=== PATIENT | female | born 1935 | race Caucasian/White ===

== ENCOUNTER 2024-07-25 11:30 | Emergency (ER) | payer MEDICARE, SELFPAY ==
[2024-07-25 11:38] VITALS: BP 144/74
--- NOTE | 2024-07-25 12:43 | ED.GENMED ---
History of Present Illness
<Edmund Fishman MD - Last Filed: 07/25/24 12:45>
General
Chief Complaint: Foreign Body Removal
Time Seen by Provider: 07/25/24 12:13
<DASIY Cano - Last Filed: 07/25/24 13:06>
General
Source: patient
Exam Limitations: none
Nursing documentation reviewed up to this point in time: agreed with
History of Present Illness
History of Present Illness:
Patient is an 89-year-old female here to have her pessary removed. She reports several days ago she could feel that it was more comfortable except out of position. She has been trying to remove it herself and unable to do so. She was not able to
get an appointment with gynecology.
Past History
<Edmund Fishman MD - Last Filed: 07/25/24 12:45>
Past History
ED Past Medical History: HTN; Negative Asthma, Hypercholesterolemia or NIDDM
ED Past Surgical History: Orthopedic (Grant knee replacements)
Social History
Tobacco: Non-smoker
Alcohol: Occasional
Personal:
Living: with family
Review of Systems
<DAISY Cano - Last Filed: 07/25/24 13:06>
Review of Systems
Allergies reviewed?: Yes
All Other Systems: ROS reviewed and negative except as documented in HPI and ROS
Constitutional: Reports no symptoms
: Reports other (Discomfort from pessary); Denies dysuria, flank pain, incontinence or urgency
Musculoskeletal: Reports no symptoms
Skin: Reports no symptoms
Hematologic/Lymphatic: Reports no symptoms
Psychiatric: Reports no symptoms
Phy Exam
<DAISY Cano - Last Filed: 07/25/24 13:06>
General Physical Exam
General Presentation: no apparent distress
General age: appears stated age
General Skin: warm and dry
General Habitus: normal
General Mental: alert
General Hydration: appears well hydrated
Genitourinary Exam Female
Exam Female: other (Entrance to vaginal area mildly irritated)
Vaginal Exam: other (Pessary visible )
Neurological Exam
Neurological Exam: alert and oriented x3
Musculoskeletal Exam
Musculoskeletal Exam: full ROM
Skin Exam
Skin Exam: normal color and warm/dry
Psychiatric Exam
Psychiatric Exam: normal mood/affect
Course
<Edmund Fishman MD - Last Filed: 07/25/24 12:45>
Vital Signs
Initial and Last Documented VS:
Initial Vital Signs
Temp Pulse Resp BP Pulse Ox
98.3 F 67 16 144/74 95
07/25/24 11:38 07/25/24 11:38 07/25/24 11:38 07/25/24 11:38 07/25/24 11:38
Last Documented Vital Signs
Temp Pulse Resp BP Pulse Ox
98.3 F 65 19 149/78 97
07/25/24 11:38 07/25/24 12:46 07/25/24 12:00 07/25/24 12:46 07/25/24 12:46
<DAISY Cano - Last Filed: 07/25/24 13:06>
Vital Signs
Initial and Last Documented VS:
Initial Vital Signs
Temp Pulse Resp BP Pulse Ox
98.3 F 67 16 144/74 95
07/25/24 11:38 07/25/24 11:38 07/25/24 11:38 07/25/24 11:38 07/25/24 11:38
Last Documented Vital Signs
Temp Pulse Resp BP Pulse Ox
98.3 F 65 19 149/78 97
07/25/24 11:38 07/25/24 12:46 07/25/24 12:00 07/25/24 12:46 07/25/24 12:46
Cryptozoologist consulted with Physician
Cryptozoologist consulted with physician?: Yes
Name of Physician Consulted: gregoria
<DAISY Cano - Last Filed: 07/25/24 13:06>
MDM/Problems Addressed
MDM/Problems Addressed:
Patient presents for pessary removal. She reports the pessary slipped out of position and has been very uncomfortable recently. She has tried multiple times to remove it and is unable to do so. I attempted to remove pessary however was
unsuccessful. Dr. Fishman was successfully able to remove the pessary in 1 piece. Patient tolerated the procedure very well very minimal bleeding which has since stopped
Discussed with patient to closely follow-up with MACHINE ROOM OPERATOR.
<DAISY Cano - Last Filed: 07/25/24 13:06>
*Pulse Oximetry
Patient hypoxic: no
*Critical Care Note
Total Time (30-74mins, 75-104mins- exclusive of procedures): Not Applicable
ED Attending Note
<Edmund Fishman MD - Last Filed: 07/25/24 12:45>
ED Attending Note
Patient seen and examined by attending physician: Yes
ED Attending Note:
I have seen and evaluated the patient with a [id number] encounter. I have spoken to the advance practicer provider and involved in the medical history, the physical exam, medical decision making.
Evaluation and management service: agree unless noted differently below.
Results interpretation: agree unless noted differently below.
Focused HPI: 89-year-old female presents with retained pessary. Pessary migrated out of position and is now causing her discomfort and she wants it removed.
Physical exam: Patient has pessary in place in the vaginal canal rotated on its side.
Medical Decision Makin-year-old female presents with pessary that has migrated and is now causing her discomfort. She is asking to have it removed. Her MACHINE ROOM OPERATOR was not able to see her in the office for removal within a reasonable timeframe and it
was bothering her so she came to the ER. We removed the pessary here. She did have some small vaginal abrasions after pessary removal with some spotting. She will follow-up with MACHINE ROOM OPERATOR as an outpatient.
-
Portions of this chart may have been created with voice recognition software.� Occasional wrong word or��sound alike� substitutions may have occurred due to the inherent limitations of voice recognition software.
Discharge Plan
Departure
Patient Disposition: Home (Routine Discharge)
Date of Disposition: 07/25/24
Time of Disposition: 13:03
Patient with high blood pressure during this ER visit?: Yes
Condition: Fair
Covid-19: Not Applicable
Discharge Problem:
encounter for pessary removal
Prescriptions:
No Action
multivitamin [Multiple Vitamin] 1 EACH tablet
1 ea PO DAILY
hydrochlorothiazide 25 MG tablet
25 mg PO DAILY
atenolol 50 MG tablet
50 mg PO BID
calcium carbonate [Calcium 500] 500 MG tablet,chewable
1,000 mg PO DAILY
Vitamin C
1,000 mg PO DAILY
Vitamin D3
1 tab PO DAILY
Zinc
1 tab PO DAILY
Referrals:
Angela Hogan DO [Active, Gynecology]
Dong Crook MD [Family Provider, Internal Medicine]
Activity Restrictions/Additional Instructions:
Your pessary was successfully removed in 1 piece.
Please follow-up with gynecology for reevaluation.
Return if any discomfort or worsening of symptoms.
Interventions
Interventions:
*Risk Screen - Suicide Last Done: 07/25/24 11:38
*General Assessment Last Done: 07/25/24 12:31
*Neglect/Abuse Screening Last Done: 07/25/24 11:38
*ED- Fall Risk Assessment Last Done: 07/25/24 12:31
*ED COVID-19 Vaccine History Last Done: 07/25/24 12:31
Discharge Date and Time
Print Language: [email or web address]
[2024-07-25 12:46] VITALS: BP 149/78
== END 2024-07-25 13:23 | disposition home or self-care (01) ==
LOC: EMR 11:30
PROVIDERS: EMERGENCY PHYSICIAN Emergency Medicine; FAMILY PHYSICIAN Internal Medicine
DX: Z46.89 Encounter for fitting and adjustment of other specified devices (principal); I10 Essential (primary) hypertension; Z96.653 Presence of artificial knee joint, bilateral
CPT/HCPCS: 99282

== ENCOUNTER → 2024-11-30 11:05 | Outpatient (REF) | payer MEDICARE, BC, SELFPAY ==
[2024-11-30 11:53] LABS: Hematocrit 40.6 % (37.0-47.0); Hemoglobin 13.4 g/dL (12.0-16.0); Mean Corp Hgb Conc. 33.0 g/dL (33.0-37.0); Mean Corpuscular Volume 90.0 fL (81.0-99.0); Nucleated Red Blood Cells % 0 %; Platelet Count 233 10^3/uL (130-400); Red Cell Dist. Width 13.7 % (11.5-14.5)
[2024-11-30 12:27] LABS: ALT (SGPT) 17 U/L (0-35); AST (SGOT) 29 U/L (14-36); Albumin 4.3 g/dl (3.5-5.0); Alkaline Phosphatase 61 U/L (38-126); Blood Urea Nitrogen 29 mg/dl (7-17); Calcium 10.2 mg/dl (8.4-10.2); Carbon Dioxide 35 mmol/L (22-30); Chloride 99 mmol/L (98-107); Glucose 107 mg/dl (70-99); HDL Cholesterol 52 mg/dl; LDL Cholesterol, Calculated 88 mg/dl; Potassium 3.3 mmol/L (3.5-5.1); Sodium 141 mmol/L (135-145); Total Protein 7.2 g/dl (6.3-8.2); Very Low Density Lipoprotein 16 mg/dl (0-30); eGFR > 60.00
== END ==
LOC: REG 11:05
PROVIDERS: ATTENDING PHYSICIAN Internal Medicine
DX: E78.5 Hyperlipidemia, unspecified (principal)
CPT/HCPCS: 36415; 80053; 80061; 85025